=== PATIENT | male | born 1990 | race Caucasian/White ===

== ENCOUNTER 2019-12-16 21:05 | Emergency (ER) | payer OTHER ==
[2019-12-16] MEDS ORDERED: Acetaminophen Soln 650 MG/20.3 ML UD Cup PO ONE (21:51)
[2019-12-16] MEDS ORDERED: Bacitracin Oint 1 GM U/D Packet TOP ONE (23:00)
--- NOTE | 2019-12-16 23:05 | EDM.PDOC ---
ED HPI GENERAL MEDICAL PROBLEM - General Chief Complaint: Laceration Stated Complaint: HIT IN LT SIDE OF HEAD Time Seen by Provider: 12/16/19 21:33 Source of Information: Reports: Patient History Limitations: Reports: No Limitations - History of Present Illness INITIAL COMMENTS - FREE TEXT/NARRATIVE: chief complaint: laceration to forehead This is a 29 year old male present to ER for evaluation of injury from working on metal at his summer home. He reports trying to bend metal and it kicked back and hit him in the head. reports a headache, denies any loc. Onset: Sudden Duration: Hour(s): Location: Reports: Head Quality: Reports: Ache Severity: Moderate Improves with: Reports: Medication Worsens with: Reports: None Context: Reports: Other (home injury) Associated Symptoms: Reports: Headaches Frontal Forehead Pain Score (Numeric/FACES): 4 - Related Data Allergies Allergy/AdvReac Type Severity Reaction Status Date / Time No Known Allergies Allergy Verified 12/16/19 21:49 Home Meds: Home Meds NK [No Known Home Meds] 12/16/19 [History] Past Medical History - Infectious Disease History Infectious Disease History: Reports: Chicken Pox - Past Surgical History HEENT Surgical History: Reports: Naso-Sinus Surgery, Other (See Below) Other HEENT Surgeries/Procedures: nasal polyptectomy GI Surgical History: Reports: Appendectomy Social & Family History - Tobacco Use Smoking Status *Q: Never Smoker - Recreational Drug Use Recreational Drug Use: No - Living Situation & Occupation Living situation: Reports: Occupation: Employed (employed at [employer] at [employer]) ED ROS GENERAL - Review of Systems Review Of Systems: See Below Constitutional: Reports: Other (headache) HEENT: Reports: Other (laceration to left forehead) Respiratory: Reports: No Symptoms Cardiovascular: Reports: No Symptoms Endocrine: Reports: No Symptoms Skin: Reports: Wound (laceration to left forehead) Neurological: Reports: Headache Psychiatric: Reports: No Symptoms Hematologic/Lymphatic: Reports: No Symptoms Immunologic: Reports: No Symptoms ED EXAM, SKIN/RASH Exam: See Below Exam Limited By: No Limitations General Appearance: Alert, WD/WN, Mild Distress Eye Exam: Bilateral Eye: EOMI, Normal Inspection, PERRL Ears: Normal External Exam, Normal Canal, Hearing Grossly Normal, Normal TMs Nose: Normal Inspection, Normal Mucosa, No Blood Throat/Mouth: Normal Inspection, Normal Lips, Normal Teeth, Normal Gums, Normal Oropharynx, Normal Voice, No Airway Compromise Head: Other (laceration noted to left forehead with scant bleeding.) Neck: Normal Inspection, Supple, Non-Tender, Full Range of Motion Respiratory/Chest: No Respiratory Distress, Lungs Clear, Normal Breath Sounds, No Accessory Muscle Use, Chest Non-Tender Cardiovascular: Regular Rate, Rhythm, No Murmur Extremities: Normal Inspection, Normal Range of Motion, Non-Tender, No Pedal Edema, Normal Capillary Refill Neurological: Alert, Oriented, CN II-XII Intact, Normal Cognition, Normal Gait, Normal Reflexes, No Motor/Sensory Deficits Psychiatric: Normal Affect, Normal Mood Skin: Wound/Incision Location, Skin: Head Characteristics: Linear Associated features: Warmth, Weeping Lymphatic: No Adenopathy ED SKIN PROCEDURES - Laceration/Wound Repair Left Medial Forehead Appearance: Subcutaneous, Irregular, Clean Distal NVT: Neuro & Vascular Intact Anesthetic Type: Local Local Anesthesia - Lidocaine (Xylocaine): 1% Plain Local Anesthetic Volume: 2cc Skin Prep: Chlorhexidine (Hibiciens), Saline Exploration/Debridement/Repair: Wound Explored Closed with: Sutures Lac/Wound length In cm: 2.5 Suture Size: 4-0 # of Sutures: 8 Suture Type: Prolene Sterile Dressing Applied: None Tetanus Status Addressed: Yes (last Td 2017) Complications: No Course - Vital Signs Last Recorded V/S: Last Vital Signs Temp 36.6 C 12/16/19 21:51 Pulse 76 12/16/19 21:51 Resp 16 12/16/19 21:51 BP 152/107 H 12/16/19 21:51 Pulse Ox 97 12/16/19 21:51 - Orders/Labs/Meds Orders: Active Orders 24 hr Category Date Time Status Head wo Cont [CT] Stat Exams 12/16/19 21:51 Ordered Max Facial Sinus wo Cont [CT] Stat Exams 12/16/19 21:51 Ordered Meds: Medications Discontinued Medications Generic Name Dose Route Start Last Admin Trade Name Freq PRN Reason Stop Dose Admin Acetaminophen 650 mg 12/16/19 21:51 12/16/19 22:01 Tylenol PO 12/16/19 21:52 650 mg ONETIME ONE Administration Bacitracin 1 dose 12/16/19 23:00 Bacitracin Oint 1 Gm TOP 12/16/19 23:01 ONETIME ONE Lidocaine HCl 5 ml 12/16/19 21:50 12/16/19 22:02 Xylocaine-Mpf 1% INJECT 12/16/19 21:51 5 ml ONETIME ONE Administration - Re-Assessments/Exams Free Text/Narrative Re-Assessment/Exam: 12/16/19 23:22 CT head and maxi-facial without contrast reviewed with Mr. Pacheco copy of CT cd given to patient. Departure - Departure Time of Disposition: 23:27 Disposition: Home, Self-Care 01 Condition: Good Clinical Impression: Laceration of forehead without complication - Discharge Information *PRESCRIPTION DRUG MONITORING PROGRAM REVIEWED*: Not Applicable *COPY OF PRESCRIPTION DRUG MONITORING REPORT IN PATIENT CIRO: Not Applicable Instructions: Sutured Wound Care, [id number] Referrals: PCP,None [Primary Care Provider] - Forms: ED Department Discharge Care Plan Goals: laceration -sutures place, removed in 7 to 10 days -apply Bacitracin ointment two times a day for 3 to 5 days -monitor for signs of infection -wound check in 3 to 5 days -Head CT negative -Facial maxillary CT negative for acute injury Return to ER for any signs of infection, fever, chills, nausea, vomiting, wound redness or drainage or any concerns. Sepsis Event Note - Evaluation Sepsis Screening Result: No Definite Risk - Focused Exam Vital Signs: Vital Signs Temp Pulse Resp BP Pulse Ox 12/16/19 21:51 36.6 C 76 16 152/107 H 97 12/16/19 21:38 36.6 C 76 16 152/107 H 97 Date Exam was Performed: 12/16/19 Time Exam was Performed: 23:21 - Problem List & Annotations (1) Laceration of forehead without complication SNOMED Code(s): 142591137 Code(s): S01.81XA - LACERATION W/O FOREIGN BODY OF OTH PART OF HEAD, INIT ENCNTR Status: Acute Priority: High Current Visit: Yes Qualifiers: Encounter type: initial encounter Qualified Code(s): S01.81XA - Laceration without foreign body of other part of head, initial encounter - Problem List Review Problem List Initiated/Reviewed/Updated: Yes - My Orders Last 24 Hours: My Active Orders 12/16/19 21:51 Head wo Cont [CT] Stat Max Facial Sinus wo Cont [CT] Stat - Assessment/Plan Last 24 Hours: My Active Orders 12/16/19 21:51 Head wo Cont [CT] Stat Max Facial Sinus wo Cont [CT] Stat Plan: laceration -sutures place, removed in 7 to 10 days -apply Bacitracin ointment two times a day for 3 to 5 days -monitor for signs of infection -wound check in 3 to 5 days -Head CT negative -Facial maxillary CT negative for acute injury Return to ER for any signs of infection, fever, chills, nausea, vomiting, wound redness or drainage or any concerns.
--- NOTE | 2019-12-16 23:25 | CRLCT ---
HISTORY: Head trauma. TECHNIQUE: CT brain without contrast. COMPARISON: None. FINDINGS: No acute intracranial hemorrhage. No extra-axial collection. No mass effect or midline shift. Ventricular system is normal caliber. Cisterns are patent. Cunningham-white differentiation is maintained. Calvarium is intact. Mastoid air cells are clear. Mild thickening and infiltration of left frontal scalp subcutaneous fat. Left frontal scalp wound in the area of soft tissue infiltration. IMPRESSION: 1. No acute intracranial abnormality. 2. Left frontal scalp laceration and contusion. Dictated by Jf Nolen MD @ 12/16/2019 11:23:43 PM Please note that all CT scans at this facility use dose modulation, iterative reconstruction, and/or weight-based dosing when appropriate to reduce radiation dose to as low as reasonably achievable. Dictated by: Jf Nolen MD @ 12/16/2019 23:23:48 (Electronically Signed)
--- NOTE | 2019-12-16 23:30 | CRLCT ---
HISTORY: Head trauma. TECHNIQUE: CT facial bones without contrast. COMPARISON: None. FINDINGS: Zygomatic arches are intact. Orbital rims, rojas, and apices are intact. Orbital contents are unremarkable. Pterygoid plates are intact. Temporomandibular joints are maintained. No mandible fracture. Nasal bone is intact. No acute abnormality of the visualized cervical spine. Maxillary antrostomy bilaterally. Moderate mucosal thickening in bilateral maxillary sinuses, greater on the right. Bilateral ethmoidectomies. Patchy mucosal thickening in the ethmoid air cells. Mastoid air cells are clear. Middle ear cavities are clear. Left frontal scalp laceration and contusion more completely seen on brain CT. IMPRESSION: 1. No facial bone fracture. 2. Left frontal scalp laceration and contusion more completely evaluated on brain CT. 3. Postoperative and inflammatory changes in bilateral paranasal sinuses. Please note that all CT scans at this facility use dose modulation, iterative reconstruction, and/or weight-based dosing when appropriate to reduce radiation dose to as low as reasonably achievable. Dictated by Jf Nolen MD @ Dec 16 2019 11:20PM Signed by Dr. Jf Nolen @ Dec 16 2019 11:28PM
== END 2019-12-16 23:34 | disposition home or self-care (01) ==
LOC: JP.ED 21:05
DX: S01.81XA Laceration without foreign body of other part of head, initial encounter (principal); W22.8XXA Striking against or struck by other objects, initial encounter; Y92.009 Unspecified place in unspecified non-institutional (private) residence as the place of occurrence of the external cause
CPT/HCPCS: 12011; 70450; 70486; 99283; A9270; J2001